=== PATIENT | male | born 1990 | race Caucasian/White ===

== ENCOUNTER 2017-11-30 21:23 | Emergency (ER) | payer MEDICAID, OTHER ==
[~2017-11-30] VITALS: Ht 157.5 cm; Wt 90.3 kg
[2017-11-30 21:49] VITALS: BP 150/68
[2017-11-30] MEDS ORDERED: IBUPROFEN 400 MG TAB ONE (21:53)
[2017-11-30] MEDS ORDERED: IBUPROFEN 400 MG TAB PO ONE (21:55)
--- NOTE | 2017-11-30 23:02 | NUR ---
PT AMB TO CHAIR D
--- NOTE | 2017-11-30 23:05 | NUR ---
PATIENT IS A 26 Y/O MALE WHO PRESENTS TO THE ED C/O BODY ACHES. PT STATES, "I WENT TO A CLINIC A FEW DAYS AGO BUT I STILL HAVE PAIN." PT REPORTS 9/10 ACHING HEADACHE PAIN THAT DOES NOT RADIATE. PT DENIES CP, SOB, N/V/D. PT AAOX4, RR EVEN/UNLABORED. PT REPOSITIONED FOR COMFORT, PT SITTING IN CHAIR. ER MD DR. LESTER NOTIFIED. WILL CONTINUE TO MONITOR.
[2017-12-01] VITALS: BP 129/85
--- NOTE | 2017-12-01 | NUR ---
Patient discharged with v/s stable. Written and verbal after care instructions given and explained. Patient alert, oriented and verbalized understanding of instructions. Ambulatory with steady gait. All questions addressed prior to discharge. ID band removed. Patient advised to follow up with PMD. Rx of IBUOPROFEN 600MG given. Patient educated on indication of medication including possible reaction and side effects. Opportunity to ask questions provided and answered.
== END 2017-12-01 | disposition home or self-care (01) ==
LOC: MED 21:23
DX: J06.9 Acute upper respiratory infection, unspecified (principal); Z88.6 Allergy status to analgesic agent
CPT/HCPCS: 71045; 99283

== ENCOUNTER 2018-08-13 19:06 | Emergency (ER) | payer OTHER ==
[~2018-08-13] VITALS: Ht 157.5 cm; Wt 94.3 kg
[2018-08-13 19:18] VITALS: BP 145/87
[2018-08-13] MEDS ORDERED: FLUORESCEIN OPTH STRIP 0.6 MG OP ONE (19:50)
[2018-08-13] MEDS ORDERED: TETRACAINE HCL/PF 0.5% OPTH 4 ML BTL OP ONE (19:50)
[2018-08-13] MEDS ORDERED: FLUORESCEIN OPTH STRIP 0.6 MG ONE (19:54)
[2018-08-13] MEDS ORDERED: MORPHINE SULFATE 4 MG/ML SYR IM ONE (20:00)
[2018-08-13 20:30] VITALS: BP 128/84
== END 2018-08-13 20:30 | disposition home or self-care (01) ==
LOC: MED 19:06
DX: S05.01XA Injury of conjunctiva and corneal abrasion without foreign body, right eye, initial encounter (principal); Z79.82 Long term (current) use of aspirin; X58.XXXA Exposure to other specified factors, initial encounter; Y93.89 Activity, other specified; Y92.89 Other specified places as the place of occurrence of the external cause; Y99.0 Civilian activity done for income or pay
CPT/HCPCS: 96372; 99283; J2270

== ENCOUNTER 2019-08-03 12:34 | Emergency (ER) | payer OTHER ==
[~2019-08-03] VITALS: Ht 157.5 cm; Wt 61.2 kg
--- NOTE | 2019-08-03 12:34 | NUR ---
Patient BIBA ALS, transferred to bed 5. RN evaluating patient at bedside.
--- NOTE | 2019-08-03 12:35 | NUR ---
Dr. Valdez is evaluating the patient at bedside.
[2019-08-03 12:43] VITALS: BP 128/86
--- NOTE | 2019-08-03 13:10 | NUR ---
energy conservation technician at bedside.
[2019-08-03 13:21] LABS: BASOPHILS % (AUTO) 0.6 % (0.0-2.0); EOSINOPHILS # (AUTO) 0.1 K/uL (0-0.4); EOSINOPHILS % (AUTO) 1.3 % (0.0-4.0); HEMATOCRIT 46.3 % (36-52); LYMPHOCYTES # (AUTO) 0.9 K/uL (2.0-11.5); LYMPHOCYTES % (AUTO) 12.2 % (20.5-51.1); MEAN CORPUSCULAR HEMOGLOBIN 28 pg (27-31); MEAN CORPUSCULAR HGB CONC 35 g/dL (33-37); MEAN CORPUSCULAR VOLUME 80.8 fL (80-94); MONOCYTES # (AUTO) 0.5 K/uL (0.8-1.0); MONOCYTES % (AUTO) 6.2 % (1.7-9.3); NEUTROPHILS % (AUTO) 79.7 % (42.2-75.2); PLATELET COUNT (AUTO) 314 K/uL (140-450); RED BLOOD CELL COUNT(AUTO) 5.74 MIL/uL (4.20-6.10); WHITE BLOOD COUNT (AUTO) 7.5 K/uL (4.8-10.8)
[2019-08-03 13:24] LABS: ANION GAP 20.4 (8-16); CARBON DIOXIDE 21.2 mmol/L (21-32); CHLORIDE 101 mmol/L (98-107); CREATININE 1.3 mg/dL (0.7-1.3); GFR ARICAN-AMERICAN 85 mL/min (>90); GLUCOSE 115 mg/dL (74-106); POTASSIUM 3.6 mmol/L (3.5-5.1); SODIUM SERUM 139 mmol/L (136-145); UREA NITROGEN, BLOOD 14 mg/dL (7-18)
[2019-08-03 13:30] LABS: ALBUMIN 4.5 g/dL (3.4-5.0); ASPARTATE AMINOTRANSFERASE 40 U/L (15-37); TOTAL BILIRUBIN 0.8 mg/dL (0.0-1.0)
[2019-08-03 13:31] LABS: SALICYLATE < 2.8 mg/dL (2.8-20.0)
[2019-08-03 13:32] LABS: ACETAMINOPHEN < 0.5 ug/ml (10-30)
[2019-08-03] MEDS ORDERED: NACL 0.9% 1,000 ML IV ONE (13:50)
--- NOTE | 2019-08-03 14:18 | NUR ---
PT IS NOW MORE RESPONSIVE. PT ABLE TO URINATE AT THIS TIME.
[2019-08-03 14:58] LABS: APPEARANCE,URINE CLEAR (CLEAR); BILIRUBIN,URINE 1+ (NEGATIVE); BLOOD, URINE TRACE-I (NEGATIVE); LEUKOCYTE ESTERASE ,URINE NEGATIVE (NEGATIVE); NITRITE, URINE NEGATIVE (NEGATIVE); UGLUCOSE NEGATIVE (NEGATIVE)
[2019-08-03 14:59] LABS: COLOR,URINE AMBER (YELLOW)
[2019-08-03 15:03] LABS: BARBITURATE, URINE NEG. ng/ml (NEG <=200); BENZODIAZEPINE, URINE POS. ng/mL (NEG <=200); CANNABINOID, URINE NEG. ng/mL (NEG <=50); COCAINE, URINE NEG. ng/mL (NEG <=300); OPIATE, URINE NEG. ng/mL (NEG <=2000); PHENCYCLIDINE SCREEN,URINE NEG. ng/mL (NEG <=25)
[2019-08-03 15:12] LABS: RBC,URINE 0-5 /HPF (0-5); WBC,URINE NONE SEEN /HPF (0-5)
--- NOTE | 2019-08-03 16:58 | NUR ---
PT SLEEPING IN BED. AROUSABLE TO NAME. WILL CONT TO MONITOR.
--- NOTE | 2019-08-03 17:28 | NUR ---
Telepsychiatry consultation ordered as requested by Dr. Valdez.
[2019-08-03 18:37] VITALS: BP 134/89
--- NOTE | 2019-08-03 18:45 | NUR ---
PT IS ASLEEP. AROUSABLE BY NAME. VSS.
--- NOTE | 2019-08-03 19:03 | NUR ---
Dr. Smith evaluating patient via telepsychiatry.
--- NOTE | 2019-08-03 19:12 | NUR ---
REPORT GIVEN TO STEPHANIE. ALL CARE TRANSFERRED AT THIS TIME.
--- NOTE | 2019-08-03 19:13 | NUR ---
RECEIVED REPORT FROM DEBRA RIZVI. ASSUMED CARE AT THIS TIME.
--- NOTE | 2019-08-03 19:31 | NUR ---
PT AMBULATED TO RESTROOM WITH STEADY GAIT OBSERVED.
--- NOTE | 2019-08-03 19:45 | NUR ---
PT TO BE RELEASED FROM 5100. PAPERWORK PENDING.
--- NOTE | 2019-08-03 20:44 | NUR ---
Patient discharged with v/s stable. Written and verbal after care instructions given and explained. Patient verbalized understanding. Ambulatory with steady gait. All questions addressed prior to discharge. Advised to follow up with PMD.
== END 2019-08-03 20:44 | disposition home or self-care (01) ==
LOC: MED 12:34
DX: F15.10 Other stimulant abuse, uncomplicated (principal); Z88.6 Allergy status to analgesic agent
CPT/HCPCS: 36415; 71045; 80053; 80305; 81001; 82550; 82553; 84484; 85025; 99284; G0480; G0482; Q0092; 93005; J7030

== ENCOUNTER 2021-06-15 19:33 | Emergency (ER) | payer OTHER ==
[~2021-06-15] VITALS: Ht 160 cm; Wt 94.3 kg
[2021-06-15 19:37] VITALS: BP 145/89
--- NOTE | 2021-06-15 19:40 | NUR ---
TO LOBBY A/W BED AMBULATORY
--- NOTE | 2021-06-15 22:01 | NUR ---
Balaji manrique in [facility] - 06/15/21 at 2211 by [facility] AMBULAED TO ER BED 3
--- NOTE | 2021-06-15 22:35 | NUR ---
PT CALLED IN LOBBY NO RESPONSE
--- NOTE | 2021-06-15 22:46 | NUR ---
PT LWBS 2006
== END 2021-06-15 20:49 | disposition left against medical advice (07) ==
LOC: MED 19:33
DX: H92.01 Otalgia, right ear (principal); Z53.21 Procedure and treatment not carried out due to patient leaving prior to being seen by health care provider